=== PATIENT | male | born 1955 | race Caucasian/White ===

== ENCOUNTER 2017-05-22 10:39 | Emergency (ER) | payer OTHER ==
[~2017-05-22] VITALS: Ht 165.1 cm; Wt 84.4 kg
[2017-05-22 10:43] VITALS: BP 125/86
== END 2017-05-22 11:55 | disposition home or self-care (01) ==
LOC: ED 11:40
DX: M94.0 Chondrocostal junction syndrome [Tietze] (principal); J31.0 Chronic rhinitis; J02.9 Acute pharyngitis, unspecified; I10 Essential (primary) hypertension; Z88.0 Allergy status to penicillin
CPT/HCPCS: 71020; 99284